=== PATIENT | male | born 1955 | race Caucasian/White ===

== ENCOUNTER → 2023-05-02 11:43 | Outpatient (REF) | payer MEDICARE, SELFPAY ==
[2023-05-02 12:50] LABS: ALT (SGPT) 23 U/L (0-50); AST (SGOT) 38 U/L (17-59); Albumin 4.5 g/dl (3.5-5.0); Alkaline Phosphatase 147 U/L (38-126); Blood Urea Nitrogen 17 mg/dl (9-20); Carbon Dioxide 32 mmol/L (22-30); Chloride 102 mmol/L (98-107); Glucose 95 mg/dl (70-99); Potassium 5.4 mmol/L (3.5-5.1); Sodium 138 mmol/L (135-145); Total Bilirubin 0.9 mg/dl (0.2-1.3); Total Protein 7.5 g/dl (6.3-8.2); eGFR > 60.00
[2023-05-03 23:12] LABS: Lamotrigine (Lamictal) 11.5 ug/mL (3.0-15.0)
== END ==
LOC: REG 11:43
PROVIDERS: ATTENDING PHYSICIAN Nurse Practitioner Adult Health; FAMILY PHYSICIAN Internal Medicine
DX: Z86.73 Personal history of transient ischemic attack (TIA), and cerebral infarction without residual deficits (principal); G40.209 Localization-related (focal) (partial) symptomatic epilepsy and epileptic syndromes with complex partial seizures, not intractable, without status epilepticus
CPT/HCPCS: 36415; 80053; 80175

== ENCOUNTER → 2023-06-06 11:24 | Outpatient (REF) | payer MEDICARE, SELFPAY ==
[2023-06-06 13:26] LABS: Blood Urea Nitrogen 16 mg/dl (9-20); Carbon Dioxide 30 mmol/L (22-30); Chloride 100 mmol/L (98-107); Glucose 96 mg/dl (70-99); HDL Cholesterol 57 mg/dl; LDL Cholesterol, Calculated 72 mg/dl; Sodium 139 mmol/L (135-145); Total Cholesterol 144 mg/dl (50-199); Triglyceride 77 mg/dl (10-149); Very Low Density Lipoprotein 15 mg/dl (0-30); eGFR > 60.00
== END ==
LOC: REG 11:24
PROVIDERS: ATTENDING PHYSICIAN Internal Medicine Cardiovascular Disease; FAMILY PHYSICIAN Internal Medicine
DX: E78.5 Hyperlipidemia, unspecified (principal)
CPT/HCPCS: 36415; 80048; 80061

== ENCOUNTER → 2023-06-26 06:24 | Day surgery (SDC) | payer MEDICARE, SELFPAY | LOC: GI 06:24 | PROVIDERS: ATTENDING PHYSICIAN Specialist | DX: Z12.11 Encounter for screening for malignant neoplasm of colon (principal); D12.3 Benign neoplasm of transverse colon; K57.30 Diverticulosis of large intestine without perforation or abscess without bleeding; K56.2 Volvulus; K64.8 Other hemorrhoids; Z86.010 Personal history of colon polyps | CPT/HCPCS: 45385; 88305 ==

== ENCOUNTER → 2023-08-06 13:47 | Outpatient (REF) | payer MEDICARE, SELFPAY | LOC: RCS 13:47 | PROVIDERS: ATTENDING PHYSICIAN Internal Medicine Cardiovascular Disease; FAMILY PHYSICIAN Internal Medicine | DX: Z95.2 Presence of prosthetic heart valve (principal) | CPT/HCPCS: 93306 ==

== ENCOUNTER → 2023-12-25 11:57 | Outpatient (REF) | payer MEDICARE, SELFPAY | LOC: RAD 11:57 | PROVIDERS: ATTENDING PHYSICIAN Orthopaedic Surgery Hand Surgery; FAMILY PHYSICIAN Internal Medicine | DX: M25.512 Pain in left shoulder (principal) | CPT/HCPCS: 73200 ==

== ENCOUNTER 2024-01-15 05:59 | Day surgery (SDC) | payer MEDICARE, SELFPAY ==
[2023-12-25 11:10] VITALS: BMI 25.1
[2023-12-25 11:34] LABS: Hematocrit 37.8 % (39.0-52.0); Hemoglobin 12.9 g/dL (13.0-18.0); Mean Corp Hgb Conc. 34.1 g/dL (33.0-37.0); Mean Corpuscular Hgb 30.2 pg (27.0-31.0); Mean Corpuscular Volume 88.5 fL (80.0-94.0); Mean Platelet Volume 9.6 fL (7.4-10.4); Platelet Count 276 10^3/uL (130-400); Red Blood Cell Count 4.27 10^6/uL (4.70-6.10); Red Cell Dist. Width 13.4 % (11.5-14.5); White Blood Cell Count 7.4 10^3/uL (4.8-10.8)
[2023-12-25 12:11] LABS: ALT (SGPT) 23 U/L (0-50); AST (SGOT) 39 U/L (17-59); Albumin 4.3 g/dl (3.5-5.0); Alkaline Phosphatase 116 U/L (38-126); Blood Urea Nitrogen 18 mg/dl (9-20); Calcium 9.9 mg/dl (8.4-10.2); Carbon Dioxide 29 mmol/L (22-30); Chloride 102 mmol/L (98-107); Estimated Creatinine Clearance 70 ml/min; Glucose 93 mg/dl (70-99); Potassium 4.6 mmol/L (3.5-5.1); Sodium 140 mmol/L (135-145); Total Bilirubin 0.8 mg/dl (0.2-1.3); Total Protein 7.1 g/dl (6.3-8.2); eGFR > 60.00
[2023-12-25 14:36] LABS: Glycohemoglobin (HgbA1c) 5.4 % (4.0-5.6)
--- NOTE | 2024-01-10 16:20 | PTCARENOTE ---
Long discussion with patient and regarding VN/PT at home post op.
Patient and are requesting 'assistance with care at home'. Clarification of privately paid for personal care vs VN/PT and qualifications.
Both patient and understand. Resource was emailed to patient for private caregiver and he was also checking '[employer]'.
Patient and will follow up with conversation and plan at surgeons office/post op visit and determine need of VN/PT at that time.
Neither patient or drive and do not have ability to get to OP PT easily.
--- NOTE | 2024-01-13 11:54 | VNURNOTE ---
Home Health Liaison spoke with spouse Elisabeth to discuss [facility] nurse/therapy, visits, schedule and homebound status. She is agreeable and understands that visits at home will be 2-3 x per week to assess and teach medical management. She is aware that
[facility] will contact them for start of care in 1-2 days after discharge from . [facility] referral completed in [facility].
[2024-01-13 12:39] VITALS: BMI 25.1
[2024-01-15] VITALS (9 sets, daily range): BP systolic 138–162; BP diastolic 83–100; BMI 25.1
[2024-01-15] MEDS: TYLENOL 1000 MG PO (06:31)
[2024-01-15] MEDS: CELEBREX 200 MG PO (06:31)
--- NOTE | 2024-01-15 09:46 | SUR.PHASEI ---
Pt ready to leave pacu to [facility] and noted left shoulder drsg not containing bleeding and ADRIAN Lopez made aware and in to evaluate and change drsg.
[2024-01-15] MEDS: ANCEF 5 IV (11:10)
== END 2024-01-15 11:20 | disposition home health service (06) ==
LOC: SDS 05:59
PROVIDERS: ATTENDING PHYSICIAN Orthopaedic Surgery Hand Surgery; FAMILY PHYSICIAN Internal Medicine; REFERRING PHYSICIAN Internal Medicine Cardiovascular Disease
DX: M19.012 Primary osteoarthritis, left shoulder (principal); M75.102 Unspecified rotator cuff tear or rupture of left shoulder, not specified as traumatic; R22.32 Localized swelling, mass and lump, left upper limb; M67.412 Ganglion, left shoulder; Z96.612 Presence of left artificial shoulder joint
CPT/HCPCS: 23472; C1713; C1776; 36415; 73020; 80053; 83036; 85027; 87070

== ENCOUNTER → 2025-02-11 12:49 | Outpatient (REF) | payer MEDICARE, SELFPAY | LOC: RAD 12:49 | PROVIDERS: ATTENDING PHYSICIAN Orthopaedic Surgery Hand Surgery; FAMILY PHYSICIAN Internal Medicine | DX: M25.511 Pain in right shoulder (principal) | CPT/HCPCS: 73200 ==